=== PATIENT | male | born 1980 | race Caucasian/White ===

== ENCOUNTER → 2017-03-19 | Outpatient (CLI) | payer OTHER ==
[~2017-03-19] MED LIST: MELOXICAM15 MG PO; PERCOCET 325 MG1 TA3 PO; PERCOCET 325 MG1 TA4 PO; SILVADENE400 GM/JAR TP
--- NOTE | 2017-03-19 16:10 | RADIOLOGY REPORT PS360 ---
ANKLE-RT-3 VIEWS HISTORY: RT ANKLE PAIN ORDERING PHYSICIAN: Maritza CLEMENT PATIENT AGE: 36 years COMPARISON: None FINDINGS: There is moderate soft tissue swelling overlying the lateral malleolus. No fracture or dislocation. No lytic or blastic change. There is normal mineralization.. The joint spaces are well-preserved. No significant degenerative/arthritic changes. No erosive changes evident. IMPRESSION: Soft tissue swelling otherwise negative
== END ==
LOC: RAD 15:11
DX: M25.571 Pain in right ankle and joints of right foot (principal); S99.911A Unspecified injury of right ankle, initial encounter